=== PATIENT | female | born 1955 ===

== ENCOUNTER 2023-05-30 11:22 | Outpatient (CLI) | payer SELFPAY ==
--- NOTE | 2023-05-30 11:40 | MM_ITS ---
WS: [id number] VIEWS: MLO and CC views both breasts. 3D digital tomosynthesis is also included in this exam. No priors. Findings: There was no sign of mass, architectural distortion or suspicious calcification in either breast. Th e breasts are heterogeneously dense which may obscure small masses MM/[place] [id number] Impression: BI-RADS: 2-Benign finding FOLLOW-UP: 1 Year Follow-up This mammogram was also analyzed by the Computer Aided Detection System [employer].
== END 2023-05-30 11:23 | disposition home or self-care (01) ==
LOC: RAD 11:28 → MOBLMAM 11:38
PROVIDERS: Visit Provider Surgery Plastic and Reconstructive Surgery
DX: Z12.31 Encounter for screening mammogram for malignant neoplasm of breast (principal)
CPT/HCPCS: 77063; 77067